=== PATIENT | male | born 1965 | race Caucasian/White ===

== ENCOUNTER 2016-11-27 17:45 | Emergency (ER) | payer OTHER | END 2016-11-27 21:43 | disposition left against medical advice (07) | LOC: ER1 17:45 | DX: Z53.21 Procedure and treatment not carried out due to patient leaving prior to being seen by health care provider (principal) ==

== ENCOUNTER 2016-11-28 11:50 | Emergency (ER) | payer OTHER ==
[2016-11-28 14:44] LABS: HEMOGLOBIN 14.1 gm/dl (14.0-17.5); RED BLOOD COUNT 4.55 M/UL (4.20-5.50); WHITE BLOOD COUNT 5.8 K/UL (4.5-11.0)
[2016-11-28 15:08] LABS: BUN/CREATININE RATIO 5 (0-10)
== END 2016-11-28 17:50 | disposition home or self-care (01) ==
LOC: ER1 11:50
PROVIDERS: Family Medicine
DX: G47.00 Insomnia, unspecified (principal); F41.9 Anxiety disorder, unspecified; H93.19 Tinnitus, unspecified ear; I10 Essential (primary) hypertension; M54.9 Dorsalgia, unspecified; G89.29 Other chronic pain; Z79.891 Long term (current) use of opiate analgesic; Z79.899 Other long term (current) drug therapy
CPT/HCPCS: 36415; 70450; 80053; 80307; 84443; 85025; 99284; J7050

== ENCOUNTER 2016-11-29 01:00 | Emergency (ER) | payer OTHER | END 2016-11-29 06:36 | disposition left against medical advice (07) | LOC: ER1 01:00 → ZEROF 03:59 → ER1 03:59 | DX: R56.9 Unspecified convulsions (principal); S00.83XA Contusion of other part of head, initial encounter; F43.10 Post-traumatic stress disorder, unspecified; F41.9 Anxiety disorder, unspecified; Z79.891 Long term (current) use of opiate analgesic; Z79.899 Other long term (current) drug therapy | CPT/HCPCS: 36415; 70450; 70486; 71010; 72125; 93005; 96374; 96375; 99284; J1953; J2405; J7050 ==